=== PATIENT | female | born 1960 | race Hispanic/Latino ===

== ENCOUNTER 2017-10-26 15:52 | Emergency (ER) | payer MEDICAID ==
[2017-10-26] MEDS ORDERED: NACL 0.9% 1000 ML 1,000 ML ONE (16:15)
[2017-10-26] MEDS ORDERED: NACL 0.9% 1000 ML 1,000 ML IV ONE (16:28)
--- NOTE | 2017-10-26 16:37 | Emergency Department Report ---
ED General Adult HPI - General Chief complaint: Dyspnea/Respdistress Stated complaint: DIFFICULTY BREATHING Time Seen by Provider: 10/26/17 16:20 Source: family () Mode of arrival: Stretcher Limitations: Physical Limitation - History of Present Illness Initial comments: Patient presents to emergency department with her for change in mental status. Per EMS upon arrival to patient's glucose level was lower than 40. After given the patient some oral glucose process to begin to decrease to less than 70%. denies patient having any recent fevers or other URI-like symptoms. Patient has remote history of having paraplegia for some unknown reason. This has been worked up thoroughly preferred the patient's . Patient's altered upon arrival and I will answer many questions. -: Gradual Improves with: none Worsens with: none Associated Symptoms: confusion Treatments Prior to Arrival: none - Related Data Allergies Allergy/AdvReac Type Severity Reaction Status Date / Time No Known Allergies Allergy Unverified 10/26/17 16:22 ED Review of Systems ROS: Stated complaint: DIFFICULTY BREATHING Other details as noted in HPI Comment: Unobtainable due to pts medical conditions ED Physical Exam - General Limitations: Physical Limitation General appearance: obtunded, other (cachectic appearance) - Head Head exam: Present: atraumatic, normocephalic - Eye Eye exam: Present: normal appearance, PERRL. Absent: scleral icterus, conjunctival injection, periorbital swelling, periorbital tenderness - ENT ENT exam: Present: other (dry mucous membranes) - Neck Neck exam: Present: other (supple) - Respiratory Respiratory exam: Present: wheezes, accessory muscle use - Cardiovascular Cardiovascular Exam: Present: normal rhythm, tachycardia - GI/Abdominal GI/Abdominal exam: Present: soft, normal bowel sounds. 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 ) - Neurological Exam Neurological exam: Present: other (not able to assess her neurological exam completely due to the patient's initial presentation) - Psychiatric Psychiatric exam: Present: other (not able to complete a psychiatric exam secondary to the patient's presentation) - Skin Skin exam: Present: dry, other (cold to touch) ED Course Vital Signs 10/26/17 10/26/17 10/26/17 15:54 16:07 16:10 Temperature 98.1 F Pulse Rate 101 H 138 H Respiratory 36 H 30 H Rate Blood Pressure O2 Sat by Pulse 70 L 100 Oximetry 10/26/17 10/26/17 10/26/17 16:16 16:30 16:45 Temperature Pulse Rate 134 H 130 H 118 H Respiratory 30 H 31 H 23 Rate Blood Pressure 43/27 48/27 93/34 O2 Sat by Pulse 100 95 99 Oximetry 10/26/17 17:00 Temperature Pulse Rate 120 H Respiratory 19 Rate Blood Pressure 93/34 O2 Sat by Pulse 99 Oximetry ED Medical Decision Making - Lab Data Result diagrams: 10/26/17 16:29 10/26/17 16:29 - EKG Data EKG shows normal: sinus rhythm Rate: tachycardia (136) - EKG Data Interpretation: no acute changes - Medical Decision Making Initially the patient was going to be intubated but she began to become more responsive and was able to answer questions about person place and time asked questions to time. At this time it was thought that the patient should be placed on BiPAP. Per the patient wishes not to have chest compressions for heart or any medications that would help with prolonged her life. But he states she is okay with being intubated. Called to the room was again for the patient being unresponsive and the decision was made to intubate as things were getting gathered for intubation the patient then became responsive again and begin to speak to us. During this time the patient initially was in room 17 and she was moved to room 2. Time was spent trying to get the patient stabilized via adequate control of her airway and breathing. CT of the head was ordered but the patient was never stable enough to get it done Called to room 1738 and the patient was pulseless. This ultrasound was used to evaluate for cardiac activity and there was none on ultrasound. At this time was discussed with the the patient started chest compressions and he stated she would not want that. Time of is 1742 Critical care attestation.: If time is entered above; I have spent that time in minutes in the direct care of this critically ill patient, excluding procedure time. ED Disposition Clinical Impression: Respiratory failure, Cardiopulmonary arrest Disposition: DC-20 Is pt being admited?: No Does the pt Need Aspirin: No Referrals: PRIMARY CARE, [Primary Care Provider] - 3-5 Days Time of Disposition: 17:42
[2017-10-26 16:42] LABS: Basophils % (Auto) 0.2 % (0.0-1.8); Eosinophils % (Auto) 0.1 % (0.0-4.3); Hemoglobin 12.1 gm/dl (10.1-14.3); Lymphocytes # (Auto) 0.6 K/mm3 (1.2-5.4); Lymphocytes % (Auto) 9.4 % (13.4-35.0); Mean Corpuscular HGB Conc 33 % (30-34); Mean Corpuscular Hemoglobin 29 pg (28-32); Mean Corpuscular Volume 89 fl (79-97); Monocytes % (Auto) 0.7 % (0.0-7.3); Platelet Count 135 K/mm3 (140-440); Red Blood Count 4.16 M/mm3 (3.65-5.03); Red Cell Distribution Width 14.8 % (13.2-15.2)
[2017-10-26] MEDS ORDERED: NARCAN 0.4 MG/1 ML IV ONE (16:46)
[2017-10-26] MEDS ORDERED: ZOFRAN IV ONE (16:47)
[2017-10-26 17:01] LABS: Alanine Aminotransferase 7 units/L (7-56); Albumin 2.3 g/dL (3.9-5); BUN/Creatinine Ratio 24; Blood Urea Nitrogen 22 mg/dL (7-17); Calcium 7.2 mg/dL (8.4-10.2); Hemolysis Index 21
[2017-10-26 17:05] LABS: INR 1.88 (0.87-1.13)
[2017-10-26 17:06] LABS: Partial Thromboplastin Time 35.2 Sec. (24.2-36.6)
--- NOTE | 2017-10-26 18:55 | XRay Report ---
FINAL REPORT PROCEDURE: Chest. TECHNIQUE: Portable AP view. HISTORY: Hypoxia. COMPARISON: No prior studies are available for comparison. FINDINGS: The heart size is normal. The lungs are clear but hyperinflated. There is minimal blunting of the left costophrenic angle. The soft tissues and regional skeleton are unremarkable. An IVC filter is noted. IMPRESSION: COPD. Tiny left pleural effusion versus pleural thickening.
[2017-10-26 19:17] VITALS: BP 0/0
== END 2017-10-26 20:30 ==
LOC: ED 15:52
DX: I46.9 Cardiac arrest, cause unspecified (principal); J96.90 Respiratory failure, unspecified, unspecified whether with hypoxia or hypercapnia
CPT/HCPCS: 36415; 71045; 80053; 82140; 82803; 82962; 83880; 85025; 85610; 85730; 87040; 92950; 93005; 93010; 96361; 96374; 96375; 99285; J2310; J2405; J7030